=== PATIENT | female | born 1990 | race American Indian/Alaskan Native ===

== ENCOUNTER 2017-10-30 05:55 | Emergency (ER) | payer OTHER ==
[2017-10-30 06:17] VITALS: BP 119/71; PULSE 79; RESP 20; TEMP 97.6; O2SAT 96
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
== END 2017-10-30 06:55 | disposition home or self-care (01) ==
LOC: C.ER 05:55
DX: S80.01XA Contusion of right knee, initial encounter (principal); V43.62XA Car passenger injured in collision with other type car in traffic accident, initial encounter; Y92.410 Unspecified street and highway as the place of occurrence of the external cause